=== PATIENT | male | born 1945 | race Caucasian/White ===

== ENCOUNTER 2020-03-21 11:08 | Inpatient (IN) | payer OTHER ==
[~2020-03-21] VITALS: Ht 167.6 cm; Wt 72.6 kg
[2020-03-21] MEDS ORDERED: ACETAMINOPHEN 325MG TABLET PO STA (11:12)
[2020-03-21] MEDS ORDERED: AZITHROMYCIN 500 MG in DEXT 5% WATER 250 ML IV ONE (11:15)
[2020-03-21] MEDS ORDERED: CEFTRIAXONE 1 G PREMIX 50 ML IV ONE (11:15)
[2020-03-21] MEDS ORDERED: DEXAMETHASONE 10 MG/ML VIAL IV ONE (11:15)
[2020-03-21] MEDS ORDERED: SODIUM CHLORIDE 0.9% 1000ML BAG (SEPSIS BOLUS) IV ONE (11:15)
[2020-03-21 11:43] LABS: HEMOGLOBIN. 14.2 g/dL (14.0-18.0); MEAN CORPUSCULAR HEMOGLOBIN 31.4 pg (28.0-32.0); MEAN CORPUSCULAR VOLUME 90.7 fL (80.0-94.0); MEAN PLATELET VOLUME 8.5 fl (7.4-10.4); PLATELET 310 x1000/uL (130-400); RED BLOOD CELL COUNT 4.52 mill/uL (4.7-6.1)
[2020-03-21 11:49] LABS: CHLORIDE 87 mEq/L (98-107)
[2020-03-21 11:58] LABS: CREATINE KINASE 66 IU/L (39-308)
[2020-03-21 12:01] LABS: D-DIMER 15.74 mg/L FEU (<0.50); INR 1.1; PROTHROMBIN TIME 11.5 sec (9.6-11.0)
[2020-03-21 12:50] LABS: PLATELET ESTIMATE NORMAL
[2020-03-21 19:21] LABS: CLARITY URINE CLEAR (CLEAR); COLOR URINE DARK YELLOW (YELLOW); KETONES URINE NEGATIVE (NEGATIVE); LEUKOCYTE ESTERASE URINE NEGATIVE (NEGATIVE); NITRITE URINE NEGATIVE (NEGATIVE); OCCULT BLOOD URINE NEGATIVE (NEGATIVE); PH URINE 6.5 (4.5-8.0); PROTEIN URINE 1+ (NEGATIVE); SPECIFIC GRAVITY URINE 1.014 (1.005-1.030)
[2020-03-22] MEDS: AMLODIPINE 5MG TABLET PO SCH (09:00)
[2020-03-22 09:57] LABS: BG BASE EXCESS 1.9 mmol/L (-2.0-2.0); BG CARBOXYHEMOGLOBIN 0.3 % (0.5-1.5); BG DEOXYHEMOGLOBIN 6.8 % (0.0-5.0); BG FRACTION INSPIRED OXYGEN 100; BG HCO3 ACT 26.3 mmol/L (22.0-26.0); BG METHEMOGLOBIN 0.3 % (0.0-1.5); BG OXYGEN SATURATION 93.2 % (92.0-98.5); BG OXYHEMOGLOBIN 92.6 % (94.0-97.0); BG PCO2 40.6 mmHg (35.0-45.0); BG PO2 68.6 mmHg (75.0-100.0); BG SAMPLE SITE RIGHT RADIAL; BG TOTAL HEMOGLOBIN 13.5 g/dL (12.0-18.0); BG TOTAL RESPIRATORY RATE 39 b/min; BG VENT MODE MASK - BIPAP
[2020-03-22] MEDS: DEXAMETHASONE 10 MG/ML VIAL IV SCH (15:06)
[2020-03-22] MEDS: ENOXAPARIN 40MG/0.4ML SYR SUBCUT SCH (15:07)
[2020-03-22] MEDS ORDERED: HYDROCODONE/ACETAMINOPHEN 5/325MG TABLET PO PRN (15:15)
[2020-03-22] MEDS ORDERED: ONDANSETRON HCL 4MG/2ML INJ IV PRN (15:15)
[2020-03-22] MEDS ORDERED: ACETAMINOPHEN 325MG TABLET PO PRN ×2 (15:15)
[2020-03-22] MEDS ORDERED: LORAZEPAM 0.5MG TABLET PO PRN (15:15)
[2020-03-22] MEDS ORDERED: DOCUSATE SODIUM 100MG CAPSULE PO PRN (15:15)
[2020-03-22] MEDS: CLONIDINE 0.1MG TABLET PO PRN (15:44)
[2020-03-22 17:01] LABS: BG BASE EXCESS 5.3 mmol/L (-2.0-2.0); BG CARBOXYHEMOGLOBIN 0.3 % (0.5-1.5); BG FRACTION INSPIRED OXYGEN 100; BG HCO3 ACT 28.8 mmol/L (22.0-26.0); BG METHEMOGLOBIN 0.9 % (0.0-1.5); BG OXYGEN SATURATION 92.9 % (92.0-98.5); BG OXYHEMOGLOBIN 91.8 % (94.0-97.0); BG PCO2 38.3 mmHg (35.0-45.0); BG PH 7.494 (7.350-7.450); BG PO2 65.2 mmHg (75.0-100.0); BG SAMPLE SITE RIGHT RADIAL; BG TOTAL HEMOGLOBIN 14.2 g/dL (12.0-18.0); BG VENT MODE MASK - BIPAP
[2020-03-22] MEDS: CEFEPIME 1,000 MG in DEXTROSE 5% WATER 50 ML IV SCH (17:22)
[2020-03-22 19:38] LABS: HEMATOCRIT. 38.9 % (42.0-52.0); HEMOGLOBIN. 13.1 g/dL (14.0-18.0); MEAN CORPUSCULAR HEMOGLOBIN 30.8 pg (28.0-32.0); MEAN CORPUSCULAR VOLUME 91.7 fL (80.0-94.0); MEAN PLATELET VOLUME 8.8 fl (7.4-10.4); PLATELET 266 x1000/uL (130-400); RED BLOOD CELL COUNT 4.24 mill/uL (4.7-6.1); RED CELL DISTRIBUTION WIDTH 13.6 % (11.6-14.6)
[2020-03-22 19:43] LABS: CHLORIDE 102 mEq/L (98-107)
[2020-03-22 22:20] LABS: PLATELET ESTIMATE NORMAL
[2020-03-23 04:00] LABS: HEMATOCRIT. 38.6 % (42.0-52.0); MEAN CORPUSCULAR HEMOGLOBIN 30.9 pg (28.0-32.0); MEAN PLATELET VOLUME 9.3 fl (7.4-10.4); PLATELET 280 x1000/uL (130-400); RED CELL DISTRIBUTION WIDTH 13.6 % (11.6-14.6)
[2020-03-23 04:05] LABS: CHLORIDE 102 mEq/L (98-107)
[2020-03-23] MEDS: CEFEPIME 1,000 MG in DEXTROSE 5% WATER 50 ML IV SCH ×2 (06:14→17:15)
[2020-03-23] MEDS: DEXAMETHASONE 10 MG/ML VIAL IV SCH (09:00)
[2020-03-23] MEDS: AMLODIPINE 5MG TABLET PO SCH (09:00)
[2020-03-23 15:30] VITALS: BP 179/94
[2020-03-23] MEDS: CLONIDINE 0.1MG TABLET PO PRN ×2 (17:15→23:08)
[2020-03-23] MEDS: ENOXAPARIN 40MG/0.4ML SYR SUBCUT SCH (17:15)
[2020-03-23 17:27] LABS: PLATELET ESTIMATE NORMAL
[2020-03-23 20:00] VITALS: BP 166/99
[2020-03-24] VITALS (7 sets, daily range): BP systolic 158–178; BP diastolic 82–99
[2020-03-24] MEDS: CEFEPIME 1,000 MG in DEXTROSE 5% WATER 50 ML IV SCH ×2 (05:38→15:46)
[2020-03-24] MEDS: CLONIDINE 0.1MG TABLET PO PRN ×3 (05:39→20:54)
[2020-03-24 07:38] LABS: HEMATOCRIT. 36.1 % (42.0-52.0); HEMOGLOBIN. 12.3 g/dL (14.0-18.0); MEAN CORPUSCULAR HEMOGLOBIN 31.3 pg (28.0-32.0); MEAN CORPUSCULAR VOLUME 91.9 fL (80.0-94.0); MEAN PLATELET VOLUME 8.8 fl (7.4-10.4); PLATELET 245 x1000/uL (130-400); RED BLOOD CELL COUNT 3.93 mill/uL (4.7-6.1); RED CELL DISTRIBUTION WIDTH 13.9 % (11.6-14.6)
[2020-03-24 07:54] LABS: CHLORIDE 101 mEq/L (98-107)
[2020-03-24] MEDS: DEXAMETHASONE 10 MG/ML VIAL IV SCH (09:06)
[2020-03-24] MEDS: AMLODIPINE 5MG TABLET PO SCH (09:07)
[2020-03-24] MEDS ORDERED: AMLODIPINE 5MG TABLET PO NR (11:15)
[2020-03-24 14:33] LABS: PLATELET ESTIMATE NORMAL
[2020-03-24] MEDS: ENOXAPARIN 40MG/0.4ML SYR SUBCUT SCH (15:46)
[2020-03-24] MEDS ORDERED: METOPROLOL TARTRATE 25MG TABLET PO NR (16:45)
[2020-03-24] MEDS ORDERED: METOPROLOL TARTRATE 25MG TABLET PO SCH ×2 (18:15→21:00)
[2020-03-24] MEDS: METOPROLOL TARTRATE 25MG TABLET PO SCH (20:54)
[2020-03-25] VITALS: BP 159/97
[2020-03-25 04:00] VITALS: BP 155/75
[2020-03-25] MEDS ORDERED: AMLO10TA80 PO (04:34)
[2020-03-25] MEDS ORDERED: HYDR25TA PO (04:34)
[2020-03-25] MEDS ORDERED: LOSA100T32 PO (04:34)
[2020-03-25] MEDS ORDERED: ATEN50TA PO (04:34)
[2020-03-25] MEDS: CEFEPIME 1,000 MG in DEXTROSE 5% WATER 50 ML IV SCH ×2 (04:54→18:00)
[2020-03-25 08:43] VITALS: BP 177/92
[2020-03-25] MEDS: METOPROLOL TARTRATE 25MG TABLET PO SCH ×2 (10:06→22:07)
[2020-03-25] MEDS: DEXAMETHASONE 10 MG/ML VIAL IV SCH (10:07)
[2020-03-25] MEDS: AMLODIPINE 10MG TABLET PO SCH (10:07)
[2020-03-25 12:00] LABS: BG CARBOXYHEMOGLOBIN 0.5 % (0.5-1.5); BG FRACTION INSPIRED OXYGEN 100; BG HCO3 ACT 22.8 mmol/L (22.0-26.0); BG OXYHEMOGLOBIN 96.5 % (94.0-97.0); BG PCO2 28.4 mmHg (35.0-45.0); BG PH 7.522 (7.350-7.450); BG PO2 90.4 mmHg (75.0-100.0); BG SAMPLE SITE RIGHT RADIAL; BG TOTAL HEMOGLOBIN 13.2 g/dL (12.0-18.0); BG VENT MODE MASK - NRB
[2020-03-25 12:12] VITALS: BP 159/78
[2020-03-25] MEDS ORDERED: LORAZEPAM 2MG/ML CPJ IV NR (12:15)
[2020-03-25] MEDS: ENOXAPARIN 40MG/0.4ML SYR SUBCUT SCH (15:33)
[2020-03-25 16:53] VITALS: BP 168/84
[2020-03-25] MEDS ORDERED: FUROSEMIDE 40MG/4ML VIAL IVP NR (17:00)
[2020-03-25 20:00] VITALS: BP 156/93
[2020-03-26] VITALS (7 sets, daily range): BP systolic 161–194; BP diastolic 67–106
[2020-03-26] MEDS: CEFEPIME 1,000 MG in DEXTROSE 5% WATER 50 ML IV SCH ×2 (05:04→16:50)
[2020-03-26] MEDS: CLONIDINE 0.1MG TABLET PO PRN ×2 (05:05→12:07)
[2020-03-26 06:50] LABS: CHLORIDE 98 mEq/L (98-107)
[2020-03-26 07:32] LABS: HEMATOCRIT. 39.9 % (42.0-52.0); MEAN CORPUSCULAR HEMOGLOBIN 31.5 pg (28.0-32.0); MEAN PLATELET VOLUME 9.5 fl (7.4-10.4); PLATELET 160 x1000/uL (130-400); RED BLOOD CELL COUNT 4.43 mill/uL (4.7-6.1); RED CELL DISTRIBUTION WIDTH 13.7 % (11.6-14.6)
[2020-03-26] MEDS: DEXAMETHASONE 10 MG/ML VIAL IV SCH (08:24)
[2020-03-26] MEDS: METOPROLOL TARTRATE 25MG TABLET PO SCH (08:24)
[2020-03-26] MEDS: AMLODIPINE 10MG TABLET PO SCH (08:24)
[2020-03-26] MEDS: ENOXAPARIN 40MG/0.4ML SYR SUBCUT SCH (14:18)
[2020-03-26] MEDS ORDERED: DILTIAZEM HCL 90MG TABLET PO SCH (15:00)
[2020-03-26] MEDS: DILTIAZEM HCL 90MG TABLET PO SCH ×2 (16:49→21:44)
[2020-03-26 20:50] LABS: PLATELET ESTIMATE NORMAL
[2020-03-26] MEDS ORDERED: CLONIDINE 0.1MG TABLET PO SCH (21:00)
[2020-03-27 00:19] VITALS: BP 149/84
[2020-03-27 04:00] VITALS: BP 171/88
[2020-03-27] MEDS: CEFEPIME 1,000 MG in DEXTROSE 5% WATER 50 ML IV SCH ×2 (05:26→16:50)
[2020-03-27] MEDS: DILTIAZEM HCL 90MG TABLET PO SCH (05:26)
[2020-03-27 07:59] LABS: HEMATOCRIT. 41.5 % (42.0-52.0); MEAN CORPUSCULAR HEMOGLOBIN 30.7 pg (28.0-32.0); MEAN CORPUSCULAR VOLUME 91.2 fL (80.0-94.0); MEAN PLATELET VOLUME 9.2 fl (7.4-10.4); PLATELET 210 x1000/uL (130-400); RED BLOOD CELL COUNT 4.55 mill/uL (4.7-6.1); RED CELL DISTRIBUTION WIDTH 13.9 % (11.6-14.6)
[2020-03-27 08:00] VITALS: BP 186/97
[2020-03-27 08:16] LABS: CHLORIDE 101 mEq/L (98-107)
[2020-03-27] MEDS ORDERED: CLONIDINE 0.2MG TABLET PO SCH (09:00)
[2020-03-27] MEDS: DILTIAZEM HCL 60MG TABLET PO SCH ×2 (09:49→17:14)
[2020-03-27] MEDS: DEXAMETHASONE 10 MG/ML VIAL IV SCH (09:51)
[2020-03-27 12:00] VITALS: BP 176/91
[2020-03-27] MEDS: ENOXAPARIN 40MG/0.4ML SYR SUBCUT SCH (14:20)
[2020-03-27] MEDS ORDERED: METOPROLOL TARTRATE 5MG/5ML VIAL IV NR (14:30)
[2020-03-27 16:00] VITALS: BP 146/83
[2020-03-27 17:35] LABS: PLATELET ESTIMATE NORMAL
[2020-03-27] MEDS ORDERED: EPINEPHRINE 0.1MG/ML (1:10,000) 10ML SYR ONE ×2 (19:00→20:00)
[2020-03-27] MEDS ORDERED: SODIUM BICARBONATE 8.4% 1 MEQ/ML 50ML SYR IV ONE (20:00)
[2020-03-27] MEDS ORDERED: ATROPINE SULFATE 1MG/10ML SYR ONE (20:00)
[2020-03-27] MEDS ORDERED: EPINEPHRINE 10 MG in SODIUM CHLORIDE 0.9% 240 ML IV PRN (20:00)
== END 2020-03-27 23:00 | disposition expired | DRG 871 ==
LOC: EDBEDREQTM 11:16 → ER 11:23 → MICUSO 14:29 → EDBEDREQ 14:31 → EDBEDREQSVC 14:31 → EDBEDREQTM 14:31 → 7EST 03-23 14:01
PROVIDERS: ADMIT Internal Medicine; ATTEND Internal Medicine
PROC: 5A09457 Assistance with Respiratory Ventilation, 24-96 Consecutive Hours, Continuous Positive Airway Pressure (ICD-10-PCS; principal; 2020-03-21)
PROC: 0BH17EZ Insertion of Endotracheal Airway into Trachea, Via Natural or Artificial Opening (ICD-10-PCS; 2020-03-27)
PROC: 5A1935Z Respiratory Ventilation, Less than 24 Consecutive Hours (ICD-10-PCS; 2020-03-27)
PROC: 06HY33Z Insertion of Infusion Device into Lower Vein, Percutaneous Approach (ICD-10-PCS; 2020-03-27)
PROC: 5A12012 Performance of Cardiac Output, Single, Manual (ICD-10-PCS; 2020-03-27)
PROC: 5A09357 Assistance with Respiratory Ventilation, Less than 24 Consecutive Hours, Continuous Positive Airway Pressure (ICD-10-PCS; 2020-03-27)
DX: A41.89 Other specified sepsis (principal); U07.1 COVID-19; J96.01 Acute respiratory failure with hypoxia; J12.89 Other viral pneumonia; E87.1 Hypo-osmolality and hyponatremia; E87.2 Acidosis; I42.9 Cardiomyopathy, unspecified; D68.59 Other primary thrombophilia; R65.20 Severe sepsis without septic shock; I45.81 Long QT syndrome; E87.6 Hypokalemia; B97.89 Other viral agents as the cause of diseases classified elsewhere; I11.9 Hypertensive heart disease without heart failure; D72.810 Lymphocytopenia; R73.9 Hyperglycemia, unspecified; R74.01 Elevation of levels of liver transaminase levels; Z79.899 Other long term (current) drug therapy; R00.1 Bradycardia, unspecified
CPT/HCPCS: 36415; 36600; 71045; 76700; 80048; 80053; 81003; 82375; 82550; 82728; 82805; 82962; 83036; 83605; 83615; 83880; 84145; 84484; 85025; 85379; 85384; 86140; 92950; 93005; 94660; 99291; J0456; J0461; J0692; J0696; J1100; J1650; J1940; J2060; J3490; J7030; J7060; U0003